=== PATIENT | female | born 1965 | race Caucasian/White ===

== ENCOUNTER 2017-05-29 10:23 | Inpatient (IN) | payer OTHER ==
--- NOTE | 2017-05-29 10:27 | ERPHSYRPT ---
- History of Present Illness Time Seen by Provider: 05/29/17 10:26 Source: patient Exam Limitations: no limitations Physician History: 52 y/o female with history of HTN and DM comes to the ER with complaints of lower abdominal pain, nausea, vomiting and dysuria for the last few days. Pt admits to vomiting 15 times and is unable to keep anything down. Pt had a CT scan abd/pelvis that shows perinephric stranding and edema of the right kidney. Pt was sent home on bactrim for a UTI. Pt also admits to having subjective fever and chills. Pt describes the pain as sharp, constant, 8/10 and not relieved by norco. Timing/Duration: day(s) Severity: severe Modifying Factors: Improves With: nothing Associated Symptoms: nausea, vomiting, abdominal pain, shortness of breath Allergies/Adverse Reactions: No Known Drug Allergies Allergy (Verified 05/29/17 10:48) Home Medications: Benazepril HCl [Lotensin] 20 mg PO DAILY 02/06/12 [History] Fluoxetine HCl [Prozac] 40 mg PO DAILY 02/06/12 [History] Hctz/Triamterene 75/50 mg [Maxzide 75/50] 1 mg PO DAILY 02/06/12 [History] Omeprazole 20 MG [Prilosec 20 mg] 20 mg PO DAILY 03/29/15 [History] Ropinirole HCl [Requip] 1 mg PO DAILY 03/29/15 [History] Simvastatin [Zocor] 40 mg PO DAILY 03/29/15 [History] Allopurinol [Allopurinol] 300 mg PO DAILY 05/29/17 [History] Metformin HCl 500 mg [Glucophage 500 MG] 500 mg PO BIDWM 05/29/17 [History ] Hx Tetanus, Diphtheria Vaccination/Date Given: Yes Hx Influenza Vaccination/Date Given: Yes (2010) Hx Pneumococcal Vaccination/Date Given: Yes - Review of Systems Constitutional: Fever, Chills, Weakness Eyes: No Symptoms Ears, Nose, & Throat: No Symptoms Respiratory: No Cough, No Dyspnea Cardiac: No Chest Pain, No Edema, No Syncope Abdominal/Gastrointestinal: Abdominal Pain, Nausea, Vomiting, Diarrhea Genitourinary Symptoms: Dysuria, No Frequency, No Hematuria Musculoskeletal: No Back Pain, No Neck Pain Skin: No Rash Neurological: No Dizziness, No Focal Weakness, No Sensory Changes Psychological: No Symptoms Endocrine: No Symptoms All Other Systems: Reviewed and Negative - Past Medical History Pertinent Past Medical History: Yes Neurological History: No Pertinent History ENT History: No Pertinent History Cardiac History: Hypertension Respiratory History: No Pertinent History, Sleep Apnea Endocrine Medical History: No Pertinent History Musculoskeletal History: No Pertinent History GI Medical History: No Pertinent History History: No Pertinent History Psycho-Social History: Depression Female Reproductive Disorders: No Pertinent History - Past Surgical History Past Surgical History: Yes Neuro Surgical History: No Pertinent History Cardiac: No Pertinent History Respiratory: No Pertinent History Gastrointestinal: No Pertinent History Genitourinary: No Pertinent History Musculoskeletal: Orthopedic Surgery, Other Female Surgical History: Section, Hysterectomy Other Surgical History: cervical ablation, knee scope left, cycst removed in lower back, maniscus repair and knee scope, left ankle - Social History Smoking Status: Never smoker Exposure to second hand smoke: No Drug Use: none - Nursing Vital Signs Nursing Vital Signs: Initial Vital Signs Temperature 99.6 F 05/29/17 10:27 Pulse Rate 110 H 05/29/17 10:27 Respiratory Rate 18 05/29/17 10:27 Blood Pressure 147/82 05/29/17 10:27 O2 Sat by Pulse Oximetry 97 05/29/17 10:27 Pain Scale Pain Intensity 6 - Physical Exam General Appearance: mild distress, alert, obese Eye Exam: PERRL/EOMI, eyes nml inspection Ears, Nose, Throat Exam: normal ENT inspection, TMs normal, pharynx normal, moist mucous membranes Neck Exam: normal inspection, non-tender, supple, full range of motion Respiratory Exam: normal breath sounds, lungs clear, No respiratory distress Cardiovascular Exam: regular rate/rhythm, normal heart sounds, normal peripheral pulses, tachycardia Gastrointestinal/Abdomen Exam: soft, normal bowel sounds, tenderness, No mass Back Exam: normal inspection, normal range of motion, No CVA tenderness, No vertebral tenderness Extremity Exam: normal inspection, normal range of motion, pelvis stable Neurologic Exam: alert, oriented x 3, cooperative, normal mood/affect, nml cerebellar function, nml station & gait, sensation nml, No motor deficits Skin Exam: normal color, warm, dry, No rash Lymphatic Exam: No adenopathy SpO2 Interpretation: normal - Course Nursing assessment & vital signs reviewed: Yes Ordered Tests: Active Orders 24 hr Category Date Time Status IV Insertion STAT Care 05/29/17 10:41 Active AMYLASE Stat Lab 05/29/17 10:50 Completed BLOOD CULTURE Stat Lab 05/29/17 10:55 Received CBC W DIFF Stat Lab 05/29/17 10:50 Completed CMP Stat Lab 05/29/17 10:50 Completed CULTURE,URINE Stat Lab 05/29/17 10:50 Received LIPASE Stat Lab 05/29/17 10:50 Completed Lactic Acid Stat Lab 05/29/17 10:50 Results Manual Differential NC Stat Lab 05/29/17 10:50 Completed UA W/ MICROSCOPIC Stat Lab 05/29/17 10:50 Completed Medication Summary Generic Name Dose Route Start Last Admin Trade Name Freq PRN Reason Stop Dose Admin Sodium Chloride 1,000 mls @ 999 mls/hr 05/29/17 10:41 05/29/17 10:45 Sodium Chloride 0.9% 1000 Ml IV 05/29/17 11:41 999 mls/hr .Q1H1M STA Administration Sodium Chloride 1,000 mls @ 999 mls/hr 05/29/17 11:19 Sodium Chloride 0.9% 1000 Ml IV 05/29/17 12:19 .Q1H1M STA Discontinued Medications Generic Name Dose Route Start Last Admin Trade Name Freq PRN Reason Stop Dose Admin Sodium Chloride Confirm 05/29/17 10:43 Sodium Chloride 0.9% 1000 Ml Administered 05/29/17 10:44 Dose 1,000 mls @ ud .ROUTE .STK-MED ONE Ceftriaxone Sodium/Dextrose 1 g in 50 mls @ 100 mls/hr 05/29/17 10:49 11:08 Rocephin 1 Gm-D5w 50 Ml Bag IV 05/29/17 11:18 100 mls/hr STAT STA Administration Ceftriaxone Sodium/Dextrose Confirm 05/29/17 11:06 Rocephin 1 Gm-D5w 50 Ml Bag Administered 05/29/17 11:07 Dose 1 g in 50 mls @ ud IV .STK-MED ONE Morphine Sulfate 4 mg 05/29/17 10:41 05/29/17 10:45 Morphine Sulfate 4 Mg Inj IV 05/29/17 10:42 4 mg STAT ONE Administration Morphine Sulfate Confirm 05/29/17 10:43 Morphine Sulfate 4 Mg Inj Administered 05/29/17 10:44 Dose 4 mg .ROUTE .STK-MED ONE Ondansetron HCl 4 mg 05/29/17 10:41 05/29/17 10:46 Zofran 4 Mg/2 Ml Vial IV 05/29/17 10:42 4 mg STAT ONE Administration Ondansetron HCl Confirm 05/29/17 10:42 Zofran 4 Mg/2 Ml Vial Administered 05/29/17 10:43 Dose 4 mg .ROUTE .STK-MED ONE Lab/Rad Data: Laboratory Result Diagrams 05/29/17 10:50 05/29/17 10:50 Laboratory Results 05/29/17 05/29/17 05/29/17 Range/Units 10:50 10:50 10:50 WBC 13.6 H (4.0-10.5) K/mm3 RBC 4.34 (4.1-5.4) M/mm3 Hgb 11.8 L (12.0-16.0) gm/dl Hct 37.7 (35-47) % MCV 86.9 (78-100) fl MCH 27.1 (26-32) pg MCHC 31.3 L (32-36) g/dl RDW 16.7 H (11.5-14.0) % Plt Count 124 L (150-450) K/mm3 MPV 11.7 H (6-9.5) fl Sodium 135 L (136-145) mEq/L Potassium 3.5 (3.5-5.1) mEq/L Chloride 98 (98-107) mEq/L Carbon Dioxide 24.3 (21-32) mEq/L Anion Gap 15.7 H (5-15) MEQ/L BUN 36 H (9-20) mg/dL Creatinine 2.11 H (0.55-1.30) mg/dl Estimated GFR 26 ML/MIN Glucose 176 H (70-110) MG/DL Lactic Acid 3.2 H (0.4-2.0) Calcium 8.6 (8.5-10.1) mg/dL Total Bilirubin 0.90 (0.2-1.0) mg/dL AST 32 (15-37) U/L ALT 37 (12-78) U/L Alkaline Phosphatase 96 (46-116) U/L Serum Total Protein 7.0 (6.4-8.2) gm/dL Albumin 2.9 L (3.4-5.0) g/dL Amylase 19 L (25-115) U/L Lipase 95 (73-393) U/L Ur Collection Type Urine Color (YELLOW) Urine Appearance (CLEAR) Urine pH (5-6) Ur Specific Hastings (1.005-1.025) Urine Protein (Negative) Urine Ketones (NEGATIVE) Urine Blood (0-5) Jules/ul Urine Nitrite (NEGATIVE) Urine Bilirubin (NEGATIVE) Urine Urobilinogen (0-1) mg/dL Ur Leukocyte Esterase (NEGATIVE) Urine Microscopic RBC (0-2) /HPF Urine Microscopic WBC (0-5) /HPF Ur Epithelial Cells (FEW) /HPF Urine Bacteria (NEGATIVE) /HPF Urine Culture Reflexed (NO) Urine Glucose (NEGATIVE) mg/dL Specimen Received 05/29/17 Range/Units 10:50 WBC (4.0-10.5) K/mm3 RBC (4.1-5.4) M/mm3 Hgb (12.0-16.0) gm/dl Hct (35-47) % MCV (78-100) fl MCH (26-32) pg MCHC (32-36) g/dl RDW (11.5-14.0) % Plt Count (150-450) K/mm3 MPV (6-9.5) fl Sodium (136-145) mEq/L Potassium (3.5-5.1) mEq/L Chloride (98-107) mEq/L Carbon Dioxide (21-32) mEq/L Anion Gap (5-15) MEQ/L BUN (9-20) mg/dL Creatinine (0.55-1.30) mg/dl Estimated GFR ML/MIN Glucose (70-110) MG/DL Lactic Acid (0.4-2.0) Calcium (8.5-10.1) mg/dL Total Bilirubin (0.2-1.0) mg/dL AST (15-37) U/L ALT (12-78) U/L Alkaline Phosphatase (46-116) U/L Serum Total Protein (6.4-8.2) gm/dL Albumin (3.4-5.0) g/dL Amylase (25-115) U/L Lipase (73-393) U/L Ur Collection Type CLEAN CATCH Urine Color YELLOW (YELLOW) Urine Appearance CLOUDY (CLEAR) Urine pH 5.0 (5-6) Ur Specific Hastings 1.015 (1.005-1.025) Urine Protein 500 (Negative) Urine Ketones TRACE (NEGATIVE) Urine Blood 250 (0-5) Jules/ul Urine Nitrite POSITIVE (NEGATIVE) Urine Bilirubin NEGATIVE (NEGATIVE) Urine Urobilinogen NORMAL (0-1) mg/dL Ur Leukocyte Esterase 2+ (NEGATIVE) Urine Microscopic RBC 5-10 (0-2) /HPF Urine Microscopic WBC 25-50 (0-5) /HPF Ur Epithelial Cells MODERATE (FEW) /HPF Urine Bacteria MANY (NEGATIVE) /HPF Urine Culture Reflexed YES (NO) Urine Glucose NEGATIVE (NEGATIVE) mg/dL Specimen Received 05/29/17 1030 - Progress Progress: improved Progress Note: 05/29/17 11:[address] scan abd/pelvis shows features of pyelonephritis. The UA looks worse and the patient will receive rocephin. White count is 13,000. The lactic acid is 2 and the creatinine is 2.1. Pt feels better after receiving morphine, zofran and NS fluids. Pt has been admitted for pyelonephritis to Dr Jefferson. - Departure Time of Disposition: 11:36 Departure Disposition: In-patient Admission Clinical Impression: Pyelonephritis Condition: Fair Critical Care Time: Yes Critical Care Time(excluding separately billable procedures): 75-104 minutes Referrals: ABEL JEFFERSON [Primary Care Provider] -
[2017-05-29] MEDS ORDERED: Sodium Chloride 0.9% 1000 ML 1,000 ML IV STA ×2 (10:41→11:19)
[2017-05-29] MEDS ORDERED: Zofran 4 MG/2 ML VIAL IV ONE (10:41)
[2017-05-29] MEDS ORDERED: MORPHINE SULFATE 4 MG INJ IV ONE (10:41)
[2017-05-29] MEDS ORDERED: Zofran 4 MG/2 ML VIAL ONE (10:42)
[2017-05-29] MEDS ORDERED: MORPHINE SULFATE 4 MG INJ ONE (10:43)
[2017-05-29] MEDS ORDERED: Sodium Chloride 0.9% 1000 ML 1,000 ML ONE (10:43)
[2017-05-29] MEDS ORDERED: ROCEPHIN 1 Gm-D5w 50 ml Bag** 1 G/50 ML IVPB IV STA (10:49)
[2017-05-29 11:03] LABS: Mean Cell Volume 86.9 fl (78-100); Mean Platelet Volume 11.7 fl (6-9.5); Platelet Count 124 K/mm3 (150-450); Red Blood Count 4.34 M/mm3 (4.1-5.4); Red Cell Distribution Width 16.7 % (11.5-14.0); White Blood Count 13.6 K/mm3 (4.0-10.5)
[2017-05-29] MEDS ORDERED: ROCEPHIN 1 Gm-D5w 50 ml Bag** 1 G/50 ML IVPB IV ONE (11:06)
[2017-05-29 11:09] LABS: Mean Corpuscular Hemoglobin 27.1 pg (26-32)
[2017-05-29 11:10] LABS: Collection Type CLEAN CATCH; Leukocyte Esterase 2+ (NEGATIVE)
[2017-05-29 11:11] LABS: ADD URINE CULTURE? YES (NO); Bacteria MANY /HPF (NEGATIVE); Bilirubin NEGATIVE (NEGATIVE); Blood 250 Ery/ul (0-5); COMPLETE URINE MICROSCOPIC? YES; Epithelial Cells MODERATE /HPF (FEW); Glucose NEGATIVE (NEGATIVE); Lactic Acid 3.2 (0.4-2.0); WBC 25-50 /HPF (0-5)
[2017-05-29 11:25] LABS: ALBUMIN 2.9 g/dL (3.4-5.0); ANION GAP 15.7 MEQ/L (5-15); BILIRUBIN,TOTAL 0.9 mg/dL (0.2-1.0); Carbon Dioxide 24.3 mEq/L (21-32); Potassium 3.5 mEq/L (3.5-5.1)
[2017-05-29 11:40] LABS: BAND 5 % (0.0-2.0); Eosinophil 3 % (0.00-3.0); Platelet Estimate NORMAL (NORMAL); Total Cells Counted 100
[2017-05-29] MEDS: Sodium Chloride 0.9% 1000 ML 1,000 ML IV SCH ×2 (12:18→20:04)
[2017-05-29] MEDS ORDERED: NovoLOG Insulin SQ PRN (13:34)
[2017-05-29] MEDS: Phenergan 25 MG INJ IV PRN (14:00)
[2017-05-29 14:09] LABS: Lactic Acid 2.6 (0.4-2.0)
[2017-05-29] MEDS ORDERED: NORCO 7.5/325 MG TAB PO PRN (14:41)
[2017-05-29] MEDS ORDERED: FEVERALL 650 MG PR PRN (16:36)
--- NOTE | 2017-05-29 16:51 | HP ---
CHIEF COMPLAINT: Lower abdominal pain, nausea and vomiting. HISTORY OF PRESENT ILLNESS: The patient is a 52 y/o WF who presented to the outpatient office and saw Shaunna De Leon. She apparently had a urine done and they apparently saw blood in her urine. She was given Bactrim, but she was unable to keep it down. The patient continued to get worse. She presented herself to the Emergency Room and was subsequently admitted to the hospital for acute pyelonephritis. PAST MEDICAL HISTORY: Significant for hypertension, hyperlipidemia, type 2 diabetes mellitus, and morbid obesity. PAST SURGICAL HISTORY: Includes , hysterectomy, knee scope, apparently and meniscus repair in her knee. PHYSICAL EXAMINATION: Reveals a morbidly obese WF currently in moderate distress due to her back pain. HEENT: Normocephalic and atraumatic. Pupils equal, round, and reactive to light. Extraocular movements intact. Oropharynx is pink and moist. NECK: Supple without lymphadenopathy, thyromegaly, or JVD. CHEST: Clear to auscultation with good air movement bilaterally. HEART: Regular rate and rhythm without murmurs, rubs, or gallops. ABDOMEN: Tender particularly in the lower abdomen. No palpable masses were felt. EXTREMITIES: Without cyanosis, clubbing, or edema. NEURO: The patient is alert and oriented X 3. No focal deficits are noted. VITAL SIGNS ON ADMISSION: Showed a temperature of 99.6, pulse 110, respiratory rate 18, BP 147/82. LABORATORY STUDIES: Revealed lactic acid of 2.6. Metabolic panel showed a glucose of 176, BUN 36, creatinine 2.11. Electrolytes were normal. Liver enzymes are normal. Amylase and lipase are normal. WBC was 13,600 with 5 bands and 73 polys. Her Hgb was 11.8. Platelet count was somewhat low at 124,000. The patient's urine showed specific gravity of 1.015 with positive nitrite, 25-50 WBC/high powered field, and 5-10 RBC. The patient apparently had a CT scan that showed swelling in the kidney. She apparently also had a couple of cysts in the liver which were found on the CT scan from 2 days prior to this. The patient has outpatient evaluation set up for CT scan with contrast later, but this will likely be held presently due to her elevated creatinine. The patient has been placed on IV fluids. She is getting antiemetics, pain medications, and she has been placed on Rocephin empirically in the Emergency Room. Apparently, we did not get a culture on her urine on Thursday. We will ask them to run a culture on her urine today as well as get blood cultures. We are consulting the pharmacy for possible change in her antibiotic regimen empirically to gentamicin and Unasyn.
[2017-05-29] MEDS: Prozac 20 MG PO SCH (17:05)
[2017-05-29] MEDS: ZYLOPRIM 300 MG PO SCH (17:05)
[2017-05-29] MEDS: Glucophage 500 MG PO SCH (17:05)
[2017-05-29] MEDS: ENOXAPARIN SODIUM SQ SCH (17:05)
[2017-05-29] MEDS: PROTONIX 40 MG IV IV SCH (17:05)
[2017-05-29] MEDS: TYLENOL 325 MG PO PRN (17:05)
[2017-05-29] MEDS: Nystatin SUSPENSION 60 ML PO SCH (17:06)
[2017-05-29] MEDS ORDERED: NON-FORMULARY ITEM (Ropinirole Hcl [Requip] 1 MG) PO SCH (22:00)
[2017-05-29] MEDS ORDERED: NON-FORMULARY ITEM (Simvastatin [Zocor] 40 MG) PO SCH (22:00)
[2017-05-29] MEDS ORDERED: NON-FORMULARY ITEM (Benazepril Hcl [Lotensin] 20 MG) PO SCH (22:00)
[2017-05-30] MEDS: Requip 0.5 MG PO SCH ×2 (00:39→21:11)
[2017-05-30] MEDS: ZOCOR 20MG PO SCH ×2 (00:39→21:11)
[2017-05-30] MEDS: TYLENOL 325 MG PO PRN ×3 (00:39→19:46)
[2017-05-30] MEDS: Nystatin SUSPENSION 60 ML PO SCH ×6 (00:40→21:10)
[2017-05-30] MEDS: Lotensin 10 MG PO SCH ×2 (00:44→21:10)
[2017-05-30] MEDS: Sodium Chloride 0.9% 1000 ML 1,000 ML IV SCH ×4 (02:32→23:58)
[2017-05-30] MEDS: Zofran 4 MG/2 ML VIAL IV PRN ×2 (05:04→14:45)
[2017-05-30 06:02] LABS: Mean Cell Volume 88.2 fl (78-100); Mean Corpuscular Hemoglobin 27.6 pg (26-32); Mean Platelet Volume 11.8 fl (6-9.5); Platelet Count 97 K/mm3 (150-450); Red Blood Count 3.73 M/mm3 (4.1-5.4); Red Cell Distribution Width 16.8 % (11.5-14.0); White Blood Count 8.4 K/mm3 (4.0-10.5)
[2017-05-30 06:27] LABS: ALBUMIN 2.3 g/dL (3.4-5.0); ANION GAP 11.3 MEQ/L (5-15); BILIRUBIN,TOTAL 0.7 mg/dL (0.2-1.0); Carbon Dioxide 27.5 mEq/L (21-32); Potassium 4.3 mEq/L (3.5-5.1); Total Protein 6.3 gm/dL (6.4-8.2)
[2017-05-30 07:27] LABS: BAND 14 % (0.0-2.0); Eosinophil 1 % (0.00-3.0); Platelet Estimate DECREASED (NORMAL); Total Cells Counted 100; Toxic Granulation 1+
[2017-05-30 07:28] LABS: Dohle Bodies 1+
[2017-05-30] MEDS: Prozac 20 MG PO SCH (07:53)
[2017-05-30] MEDS: ZYLOPRIM 300 MG PO SCH (07:53)
[2017-05-30] MEDS: Glucophage 500 MG PO SCH ×2 (07:54→17:26)
[2017-05-30] MEDS: PROTONIX 40 MG IV IV SCH (07:54)
[2017-05-30] MEDS: ROCEPHIN 1 Gm-D5w 50 ml Bag** 1 G/50 ML IVPB IV SCH (07:55)
[2017-05-30] MEDS: Maxzide-25MG Tablet PO SCH (08:47)
[2017-05-30] MEDS ORDERED: NON-FORMULARY ITEM (Fluoxetine Hcl [Prozac] 40 MG) PO SCH (10:00)
[2017-05-30] MEDS ORDERED: TRIAMTERENE PO SCH (10:00)
[2017-05-30] MEDS ORDERED: HCTZ PO SCH (10:00)
[2017-05-30] MEDS ORDERED: Protonix 40MG Tablet PO SCH (10:00)
[2017-05-30] MEDS ORDERED: ZOLOFT 50 MG TABLET PO SCH (10:00)
[2017-05-30] MEDS: Phenergan 25 MG INJ IV PRN ×2 (10:28→17:26)
[2017-05-30] MEDS ORDERED: Sodium Chloride 0.9% 1000 ML 1,000 ML IV STA ×2 (14:27→18:22)
--- NOTE | 2017-05-30 14:35 | PCM.NOTE ---
Date and Time: 05/30/17 142 Subjective Assessment: She is feeling a little better; ate jello for lunch but feels it's too sweet, is having some vomiting of small amount of jello-colored vomitus. Did have fever to 101.3. Has a positive blood culture for gram negative rods. - Review of Systems Constitutional: Fever, Weakness Abdominal/Gastrointestinal: Vomiting Objective Exam General Appearance: mild distress, alert Neurologic Exam: oriented x 3, cooperative Skin Exam: normal color, warm, dry, No rash Respiratory Exam: normal breath sounds, lungs clear, No crackles/rales, No rhonchi, No wheezing Cardiovascular Exam: regular rate/rhythm, normal heart sounds, No murmur Gastrointestinal/Abdomen Exam: soft, normal bowel sounds, No tenderness Extremity Exam: No pedal edema, No swelling Back Exam: No CVA tenderness OBJECTIVE DATA Vital Signs: Vital Signs - 24 hr Temp Pulse Resp BP Pulse Ox 05/30/17 11:21 101.2 F 99 H 20 110/57 93 L 05/30/17 07:14 99.1 F 92 H 20 142/54 93 L 05/30/17 04:00 98.8 F 86 16 97/61 97 05/30/17 00:00 98.2 F 90 20 115/57 98 05/29/17 20:05 90 18 97 05/29/17 20:00 98.3 F 91 H 18 96/54 97 05/29/17 16:00 101.3 F 111 H 18 124/59 90 L Oxygen-Last 24 hours O2 Percentage 2 Liters = 28% O2 Percentage 2 Liters = 28% O2 Percentage 2 Liters = 28% O2 Percentage 2 Liters = 28% Pain Assessment - Last Documented Pain Intensity 10 Pain Scale Used 0-10 Pain Scale Intake and Output: Intake & Output 05/28/17 05/29/17 05/30/17 05/31/17 11:59 11:59 11:59 11:59 Intake Total 3606 360 Output Total 1450 Balance 2156 360 Weight 169.303 kg Lab Results: Accuchecks Date 05/29/17 Time 16:30 Accucheck Value: 126 Accucheck Value: 120 Lab Results-Last 24 Hours 05/30/17 05/30/17 Range/Units 04:00 05:35 WBC 8.4 (4.0-10.5) K/mm3 RBC 3.73 L (4.1-5.4) M/mm3 Hgb 10.3 L (12.0-16.0) gm/dl Hct 32.9 L (35-47) % MCV 88.2 (78-100) fl MCH 27.6 (26-32) pg MCHC 31.3 L (32-36) g/dl RDW 16.8 H (11.5-14.0) % Plt Count 97 L (150-450) K/mm3 MPV 11.8 H (6-9.5) fl Segmented Neutrophils 81 H (36.0-66.0) % Band Neutrophils 14 H (0.0-2.0) % Lymphocytes (Manual) 3 L (24-44) % Monocytes (Manual) 1 (0.0-12.0) % Eosinophils (Manual) 1 (0.00-3.0) % Differential Comment ABNORMAL Toxic Granulation 1+ Dohle Bodies 1+ Platelet Estimate DECREASED (NORMAL) Sodium 137 (136-145) mEq/L Potassium 4.3 (3.5-5.1) mEq/L Chloride 102 (98-107) mEq/L Carbon Dioxide 27.5 (21-32) mEq/L Anion Gap 11.3 (5-15) MEQ/L BUN 41 H (9-20) mg/dL Creatinine 2.19 H (0.55-1.30) mg/dl Estimated GFR 25 ML/MIN Glucose 159 H (70-110) MG/DL Calcium 7.9 L (8.5-10.1) mg/dL Total Bilirubin 0.70 (0.2-1.0) mg/dL AST 31 (15-37) U/L ALT 29 (12-78) U/L Alkaline Phosphatase 86 (46-116) U/L Serum Total Protein 6.3 L (6.4-8.2) gm/dL Albumin 2.3 L (3.4-5.0) g/dL Assessment/Plan (1) Pyelonephritis Current Visit: Yes Status: Acute Assessment & Plan: On IV rocephin. UCx pending. Bands from 5 yesterday to 14 today which I think just reflects the severity of her inital illness. I would expect her to run less of a fever tonight and start to feel better tomorrow. If not, would change antibiotic. Code(s): N12 - TUBULO-INTERSTITIAL NEPHRITIS, NOT SPCF ACUTE OR CHRONIC (2) Renal insufficiency Current Visit: Yes Status: Acute Assessment & Plan: This is new since Mar 2017 (when Cr was 0.99). Will give NS bolus x 2 today and recheck in a.m. (3) Diabetes mellitus Current Visit: Yes Status: Acute Qualifiers: Diabetes mellitus type: type 2 Diabetes mellitus complication status: without complication Diabetes mellitus intermodal truck driver insulin use: without intermodal truck driver use Qualified Code(s): E11.9 - Type 2 diabetes mellitus without complications Assessment & Plan: BS 120, 126 here. Code(s): E11.9 - TYPE 2 DIABETES MELLITUS WITHOUT COMPLICATIONS (4) Bacteremia Current Visit: Yes Status: Acute Assessment & Plan: Sensitivity is pending. Gram neg юлия. Code(s): R78.81 - BACTEREMIA (5) Morbid obesity Current Visit: Yes Status: Chronic Code(s): E66.01 - MORBID (SEVERE) OBESITY DUE TO EXCESS CALORIES
[2017-05-30] MEDS: MORPHINE SULFATE 4 MG INJ IV PRN (17:25)
[2017-05-30] MEDS: ENOXAPARIN SODIUM SQ SCH (17:25)
[2017-05-31] MEDS: TYLENOL 325 MG PO PRN (02:27)
[2017-05-31 05:42] LABS: Mean Cell Volume 87.8 fl (78-100); Mean Corpuscular Hemoglobin 27.4 pg (26-32); Mean Platelet Volume 11.9 fl (6-9.5); Platelet Count 104 K/mm3 (150-450); Red Blood Count 3.61 M/mm3 (4.1-5.4); Red Cell Distribution Width 16.7 % (11.5-14.0); White Blood Count 8.1 K/mm3 (4.0-10.5)
[2017-05-31 05:46] LABS: ANION GAP 9.9 MEQ/L (5-15); Carbon Dioxide 26.8 mEq/L (21-32); Potassium 3.7 mEq/L (3.5-5.1)
[2017-05-31] MEDS: Sodium Chloride 0.9% 1000 ML 1,000 ML IV SCH ×3 (06:24→22:49)
[2017-05-31] MEDS: Glucophage 500 MG PO SCH ×2 (08:00→16:23)
[2017-05-31] MEDS: MORPHINE SULFATE 4 MG INJ IV PRN (08:45)
[2017-05-31] MEDS: Zofran 4 MG/2 ML VIAL IV PRN (08:45)
[2017-05-31] MEDS: Prozac 20 MG PO SCH (09:44)
[2017-05-31] MEDS: PROTONIX 40 MG IV IV SCH (09:44)
[2017-05-31] MEDS: Maxzide-25MG Tablet PO SCH (09:44)
[2017-05-31] MEDS: ZYLOPRIM 300 MG PO SCH (09:45)
[2017-05-31] MEDS: Nystatin SUSPENSION 60 ML PO SCH ×4 (09:51→21:26)
[2017-05-31] MEDS: ROCEPHIN 1 Gm-D5w 50 ml Bag** 1 G/50 ML IVPB IV SCH (10:23)
[2017-05-31] MEDS ORDERED: Sodium Chloride 0.9% 1000 ML 2,000 ML IV STA (12:40)
[2017-05-31] MEDS ORDERED: ROCEPHIN 1 Gm-D5w 50 ml Bag** 1 G/50 ML IVPB IV ONE (13:15)
[2017-05-31] MEDS ORDERED: Colace 100 MG PO PRN (13:35)
[2017-05-31] MEDS ORDERED: Cyclobenzaprine 10 MG PO PRN (13:35)
--- NOTE | 2017-05-31 13:36 | PCM.NOTE ---
Date and Time: 05/31/17 1332 Subjective Assessment: She is feeling better. Does c/o HERRERA, thinks her neck is "out of whack." sees chiropracter typically. Nica does not sit well on her stomach. On 4L NC ( not on O2 at home). - Review of Systems Constitutional: Fever (off and on, tmax 101.2) Objective Exam General Appearance: no apparent distress, alert, obese Neurologic Exam: oriented x 3, cooperative Skin Exam: normal color, warm, dry, No rash Respiratory Exam: normal breath sounds, lungs clear, No crackles/rales, No rhonchi, No wheezing Cardiovascular Exam: regular rate/rhythm, normal heart sounds, No murmur Gastrointestinal/Abdomen Exam: soft, No tenderness, No distention Extremity Exam: No pedal edema, No swelling Back Exam: normal inspection, No rash OBJECTIVE DATA Vital Signs: Vital Signs - 24 hr Temp Pulse Resp BP Pulse Ox 05/31/17 12:00 98.2 F 98 H 22 125/59 93 L 05/31/17 07:52 97.6 F 88 21 137/90 99 05/31/17 04:10 98.1 F 91 H 18 114/67 97 05/30/17 23:40 98.4 F 112 H 22 107/50 96 05/30/17 20:47 108 H 22 94 L 05/30/17 19:34 100.2 F 110 H 24 130/75 89 L 05/30/17 16:00 100.8 F 96 H 20 132/65 93 L Oxygen-Last 24 hours O2 Percentage 4 Liters = 36% O2 Percentage 4 Liters = 36% O2 Percentage 4 Liters = 36% O2 Percentage 2 Liters = 28% Pain Assessment - Last Documented Pain Intensity 0 Pain Scale Used 0-10 Pain Scale Intake and Output: Intake & Output 05/29/17 05/30/17 05/31/17 06/01/17 11:59 11:59 11:59 11:59 Intake Total 3606 6834 60 Output Total 1850 1200 Balance 1756 5634 60 Weight 169.303 kg Lab Results: Accuchecks Date 05/31/17 Date 05/31/17 Date 05/30/17 Time 16:30 Accucheck Value: 108 Accucheck Value: 111 Accucheck Value: 122 Accucheck Value: 111 Lab Results-Last 24 Hours 12/24/17 12/24/17 Range/Units 05:00 05:00 WBC 8.1 (4.0-10.5) K/mm3 RBC 3.61 L (4.1-5.4) M/mm3 Hgb 9.9 L (12.0-16.0) gm/dl Hct 31.7 L (35-47) % MCV 87.8 (78-100) fl MCH 27.4 (26-32) pg MCHC 31.2 L (32-36) g/dl RDW 16.7 H (11.5-14.0) % Plt Count 104 L (150-450) K/mm3 MPV 11.9 H (6-9.5) fl Sodium 138 (136-145) mEq/L Potassium 3.7 (3.5-5.1) mEq/L Chloride 105 (98-107) mEq/L Carbon Dioxide 26.8 (21-32) mEq/L Anion Gap 9.9 (5-15) MEQ/L BUN 38 H (9-20) mg/dL Creatinine 1.91 H (0.55-1.30) mg/dl Estimated GFR 29 ML/MIN Glucose 128 H (70-110) MG/DL Calcium 7.6 L (8.5-10.1) mg/dL Multi-Disciplinary Progress Notes: Multi-Disciplinary Progress Notes 05/31/17 00:16 Respiratory Note by Amador Holland I WENT TO CHECK ON PT AFTER REMOVING HER HM CPAP WHERE SHE HAD LOW SATS AND HAD PLACED HER ON 4LPM O2. AT THIS TIME SHE WAS RESTING, LAYING ON HER SIDE, AND HER SATS WERE 92% ON 4LPM O2 W/ A HR OF 90. I LEFT PT ON 4LPM O2. Initialized on 05/31/17 00:16 - END OF NOTE Assessment/Plan (1) Pyelonephritis Current Visit: Yes Status: Acute Assessment & Plan: UCx with E. coli susceptible to rocephin. Increased rocephin to 2g IV daily. Code(s): N12 - TUBULO-INTERSTITIAL NEPHRITIS, NOT SPCF ACUTE OR CHRONIC (2) Renal insufficiency Current Visit: Yes Status: Acute Assessment & Plan: Persistent; improved. 2L of fluid now and recheck this evening, if not appreciably better will consult nephrology. (3) Diabetes mellitus Current Visit: Yes Status: Acute Qualifiers: Diabetes mellitus type: type 2 Diabetes mellitus complication status: without complication Diabetes mellitus alf insulin use: without petroleum terminal plant operator use Qualified Code(s): E11.9 - Type 2 diabetes mellitus without complications Code(s): E11.9 - TYPE 2 DIABETES MELLITUS WITHOUT COMPLICATIONS (4) Bacteremia Current Visit: Yes Status: Acute Assessment & Plan: also E. coli, [facility] Code(s): R78.81 - BACTEREMIA (5) Morbid obesity Current Visit: Yes Status: Chronic Code(s): E66.01 - MORBID (SEVERE) OBESITY DUE TO EXCESS CALORIES
[2017-05-31] MEDS: ENOXAPARIN SODIUM SQ SCH (17:22)
[2017-05-31 19:22] LABS: ANION GAP 9.5 MEQ/L (5-15); Carbon Dioxide 28.1 mEq/L (21-32)
[2017-05-31] MEDS: Requip 0.5 MG PO SCH (21:23)
[2017-05-31] MEDS: ZOCOR 20MG PO SCH (21:23)
[2017-05-31] MEDS: Lotensin 10 MG PO SCH (21:23)
[2017-06-01] MEDS: Sodium Chloride 0.9% 1000 ML 1,000 ML IV SCH (05:37)
[2017-06-01 08:05] VITALS: BP 106/68; PULSE 71; O2SAT 95
[2017-06-01] MEDS: Glucophage 500 MG PO SCH (08:09)
[2017-06-01 09:18] LABS: Mean Cell Volume 88.5 fl (78-100); Mean Platelet Volume 11.3 fl (6-9.5); Platelet Count 126 K/mm3 (150-450); Red Blood Count 3.49 M/mm3 (4.1-5.4); White Blood Count 8.2 K/mm3 (4.0-10.5)
[2017-06-01 09:26] LABS: Mean Corpuscular Hemoglobin 27.7 pg (26-32)
[2017-06-01 09:41] LABS: ANION GAP 10.3 MEQ/L (5-15); Carbon Dioxide 28.3 mEq/L (21-32); Potassium 3.8 mEq/L (3.5-5.1)
[2017-06-01] MEDS: ZYLOPRIM 300 MG PO SCH (09:41)
[2017-06-01] MEDS: Nystatin SUSPENSION 60 ML PO SCH (09:42)
[2017-06-01] MEDS: PROTONIX 40 MG IV IV SCH (09:42)
[2017-06-01] MEDS: Prozac 20 MG PO SCH (09:42)
[2017-06-01] MEDS: Maxzide-25MG Tablet PO SCH (09:43)
[2017-06-01] MEDS ORDERED: ROCEPHIN 2 Gm-D5w 50ML BAG** 2 G/50 ML IVPB IV SCH (10:00)
--- NOTE | 2017-06-01 10:28 | PCM.DS ---
Discharge Summary Date of Admission: 05/29/17 11:59 Date of Discharge: 06/01/17 Admitting Physician: ABEL GUTIÉRREZ Primary Care Provider: ABEL GUTIÉRREZ Allergies Allergies No Known Drug Allergies Allergy (Verified 05/29/17 10:48) Hospital Summary - Hospital Course Hospital Course: Ms. Estevez was initially seen by Shaunna De Leon 05/27/17 was started on bactrim for UTI and had CT due to flank pain and showed pyelonephritis as well as some liver areas possible hemangiomas and repeat CT was arranged with contrast. She continued to worsen at home and was admitted with pyelonephritis and sepsis. The UTI was found due to E. coli resistent to bactrim. She also had acute kidney injury likely due to the sepsis and the bactrim. this improved with IV hydration. Her vomiting finally improved and the pain is improving as well and she feels she is doing better and would like to go home. She is now afebrile and renal function is steadily improving on the iv fluids. All her home meds were continued during her stay including her aly inhibitor, metformin and diuretics. We discused she will hold her enalapril for 1 week after discharge to allow kidney to recover from the NGUYEN. She is to push fluids at home and take the antibiotic. She was given Rocephin just prior to discharge so she may start abx tomorrow. She is to have BMP redrawn in 1 week and if renal function improved she can reschedule her CT scan for the liver lesions. - Vitals & Intake/Output Vital Signs: Vital Signs Temperature 98.1 F 06/01/17 08:00 Pulse Rate 71 06/01/17 08:00 Respiratory Rate 18 06/01/17 08:00 Blood Pressure 106/68 06/01/17 08:00 O2 Sat by Pulse Oximetry 95 06/01/17 08:00 Oxygen-Last Documented O2 Percentage 4 Liters = 36% Intake & Output: Intake & Output 05/29/17 05/30/17 05/31/17 06/01/17 11:59 11:59 11:59 11:59 Intake Total 3606 6834 3635 Output Total 1850 1200 1100 Balance 1756 5634 2535 Weight 169.303 kg - Lab Result Diagrams: 06/01/17 09:15 06/01/17 09:15 Lab Results-Last 24 Hrs: Accuchecks Date 06/01/17 Date 05/31/17 Date 05/31/17 Date 05/31/17 Time 07:30 Accucheck Value: 91 Accucheck Value: 94 Accucheck Value: 145 Accucheck Value: 108 Lab Results-Last 24 Hours 05/31/17 06/01/17 06/01/17 Range/Units 18:35 09:15 09:15 WBC 8.2 (4.0-10.5) K/mm3 RBC 3.49 L (4.1-5.4) M/mm3 Hgb 9.7 L (12.0-16.0) gm/dl Hct 30.9 L (35-47) % MCV 88.5 (78-100) fl MCH 27.7 (26-32) pg MCHC 31.4 L (32-36) g/dl RDW 17.0 H (11.5-14.0) % Plt Count 126 L (150-450) K/mm3 MPV 11.3 H (6-9.5) fl Sodium 140 141 (136-145) mEq/L Potassium 4.0 3.8 (3.5-5.1) mEq/L Chloride 106 106 (98-107) mEq/L Carbon Dioxide 28.1 28.3 (21-32) mEq/L Anion Gap 9.5 10.3 (5-15) MEQ/L BUN 35 H 31 H (9-20) mg/dL Creatinine 1.85 H 1.66 H (0.55-1.30) mg/dl Estimated GFR 30 34 ML/MIN Glucose 109 134 H (70-110) MG/DL Calcium 7.7 L 7.7 L (8.5-10.1) mg/dL Micro Results-Entire Visit: Accuchecks Date 06/01/17 Date 05/31/17 Date 05/31/17 Date 05/31/17 Time 07:30 Accucheck Value: 91 Accucheck Value: 94 Accucheck Value: 145 Accucheck Value: 108 - Procedures and Test Procedures and Tests throughout Hospitalization: Therapy Orders & Screens 05/29/17 20:00 Oxygen NASAL CANNULA 2 lpm Comment: Diagnosis: Pylonephritis 05/31/17 17:37 Incentive Spirometry Assessmen UD Comment: Diagnosis: Pylonephritis Discharge Exam General Appearance: no apparent distress, alert, obese Neurologic Exam: alert, oriented x 3, cooperative, normal mood/affect, nml cerebellar function, sensation nml, No motor deficits Skin Exam: normal color, warm, dry Eye Exam: PERRL, EOMI, eyes nml inspection Ears, Nose, Throat Exam: normal ENT inspection, pharynx normal, moist mucous membranes Neck Exam: normal inspection, non-tender, supple, full range of motion Respiratory Exam: normal breath sounds, lungs clear, No respiratory distress Cardiovascular Exam: regular rate/rhythm, normal heart sounds Gastrointestinal/Abdomen Exam: soft, No tenderness, No mass Extremity Exam: normal inspection, normal range of motion Back Exam: normal inspection, normal range of motion, No CVA tenderness, No vertebral tenderness Pelvic Exam: deferred Rectal Exam: deferred Final Diagnosis/Problem List - Final Discharge Diagnosis/Problem (1) Pyelonephritis Status: Acute (2) E coli bacteremia Status: Acute (3) Sepsis Status: Acute (4) Acute kidney injury Status: Acute (5) Anemia Status: Acute (6) Diabetes mellitus Status: Chronic (7) Morbid obesity Status: Chronic - Discharge Disposition: Home, Self-Care Condition: Fair Prescriptions: New Cephalexin Mh 500 mg [Keflex 500 mg] 500 mg PO TID #21 capsule Continue Fluoxetine HCl [Prozac] 40 mg PO DAILY Hctz/Triamterene 75/50 mg [Maxzide 75/50] 1 mg PO DAILY Simvastatin [Zocor] 40 mg PO HS Omeprazole 20 MG [Prilosec 20 mg] 20 mg PO HS Ropinirole HCl [Requip] 1 mg PO HS Allopurinol 300 mg PO DAILY Metformin HCl 500 mg [Glucophage 500 MG] 500 mg PO BIDWM Hydrocodone Bit/Acetaminophen [[place] 7.5-325 Tablet] 1 each PO Q6H PRN PRN PRN Reason: Pain Nystatin 60 ml [Nystatin SUSPENSION 60 ML] 5 ml PO QID Discontinued Benazepril HCl [Lotensin] 20 mg PO HS Instructions: Urinary Tract Infection (UTI) Additional Instructions: restart the benazapril (Lotensin) in 1 week. Have lab drawn for BMP in [address] scheduled for 06/04/17 after the kidney function has returned to normal Follow up with: ABEL GUTIÉRREZ [Primary Care Provider] - 1 Week Forms: Discharge Instructions, Patient Portal Information
== END 2017-06-01 11:00 | disposition home or self-care (01) | DRG 689 ==
LOC: ED 10:23 → MED SURG 11:59
PROVIDERS: ADMIT Family Medicine; ATTEND Family Medicine
DX: N12 Tubulo-interstitial nephritis, not specified as acute or chronic (principal); A41.9 Sepsis, unspecified organism; R78.81 Bacteremia; A49.8 Other bacterial infections of unspecified site; N17.9 Acute kidney failure, unspecified; D64.9 Anemia, unspecified; E11.9 Type 2 diabetes mellitus without complications; Z79.4 Long term (current) use of insulin; E66.01 Morbid (severe) obesity due to excess calories; Z79.899 Other long term (current) drug therapy; I10 Essential (primary) hypertension; E78.5 Hyperlipidemia, unspecified; N28.9 Disorder of kidney and ureter, unspecified
CPT/HCPCS: 36000; 36415; 80048; 80053; 81000; 82150; 82962; 83605; 83690; 85025; 85027; 87040; 87077; 87086; 87186; 94760; 96360; 96365; 96374; 96375; 99285; J0696; J1650; J2270; J2405; J2550; A9270-GY

== ENCOUNTER 2022-08-26 11:01 | Emergency (ER) | payer OTHER, SELFPAY ==
[2022-08-26] MEDS ORDERED: Zofran 4 MG/2 ML VIAL IV ONE (11:29)
[2022-08-26] MEDS ORDERED: MORPHINE SULFATE 4 MG INJ IV ONE (11:29)
[2022-08-26] MEDS ORDERED: Zofran 4 MG/2 ML VIAL ONE (11:46)
--- NOTE | 2022-08-26 11:46 | ERPHSYRPT ---
- History of Present Illness Time Seen by Provider: 08/26/22 11:41 Source: patient Exam Limitations: no limitations Physician History: Patient is a 57-year-old female presents to our ED with right lower quadrant pain. Patient states the pain has been progressive over 2 weeks. Pain is moderate to severe at this time. Patient followed up with her primary care doctor's office. Dr. Gutiérrez ordered labs urinalysis. He attempted to obtain a CT abdomen pelvis but was unable to do so efficiently and so patient was brought to our ED for CAT scan to rule out appendicitis. No trauma. No fever. No nausea or vomiting. No diarrhea. No rash. Symptoms are moderate in intensity. Palpation reproduces symptoms symptoms improved with rest. Patient voices no other complaints or concerns at this time. Portions of this note were created with voice recognition technology. There may be grammatical, spelling, punctuation or sound alike errors Timing/Duration: week(s) (2 weeks) Severity: moderate Modifying Factors: Improves With: other (Palpation to right lower quadrant reproduces pain.) Associated Symptoms: denies symptoms Allergies/Adverse Reactions: No Known Drug Allergies Allergy (Verified 08/26/22 12:09) Home Medications: Fluoxetine HCl [Prozac] 40 mg PO DAILY 02/06/12 [History] Hctz/Triamterene 75/50 mg [Maxzide 75/50] 1 mg PO DAILY 02/06/12 [History] Omeprazole 20 MG [Prilosec 20 mg] 20 mg PO BID 03/29/15 [History] Ropinirole HCl [Requip] 1 mg PO HS 03/29/15 [History] Hydrocodone/Acetaminophen [[place] 7.5-325 Tablet] 1 each PO Q6H PRN PRN 05/29/17 [History] Metformin HCl 500 mg [Glucophage 500 MG] 1,000 mg PO BIDWM 05/29/17 [History] allopurinoL [Allopurinol] 300 mg PO DAILY 05/29/17 [History] Atorvastatin Calcium [Lipitor 40Mg] 40 mg PO DAILY 08/26/22 [History] Empagliflozin [Jardiance] 25 mg PO DAILY 08/26/22 [History] Ergocalciferol (Vitamin D2) [Vitamin D2] 1 cap PO WEEKLY 08/26/22 [History] Glyburide Micronized [Glynase] 3 mg PO BID 08/26/22 [History] Hx Tetanus, Diphtheria Vaccination/Date Given: Yes Hx Influenza Vaccination/Date Given: Yes (2010) Hx Pneumococcal Vaccination/Date Given: Yes - Review of Systems Constitutional: No Symptoms, No Fever, No Chills Eyes: No Symptoms Ears, Nose, & Throat: No Symptoms Respiratory: No Symptoms, No Cough, No Dyspnea Cardiac: No Symptoms, No Chest Pain, No Edema, No Syncope Abdominal/Gastrointestinal: No Symptoms, No Abdominal Pain, No Nausea, No Vomiting, No Diarrhea Genitourinary Symptoms: No Symptoms, No Dysuria Musculoskeletal: No Symptoms, No Back Pain, No Neck Pain Skin: No Symptoms, No Rash Neurological: No Symptoms, No Dizziness, No Focal Weakness, No Sensory Changes Psychological: No Symptoms Endocrine: No Symptoms Hematologic/Lymphatic: No Symptoms Immunological/Allergic: No Symptoms All Other Systems: Reviewed and Negative - Past Medical History Pertinent Past Medical History: Yes Neurological History: No Pertinent History ENT History: No Pertinent History Cardiac History: Hypertension Respiratory History: No Pertinent History, Sleep Apnea Endocrine Medical History: No Pertinent History Musculoskeletal History: No Pertinent History GI Medical History: No Pertinent History History: No Pertinent History Psycho-Social History: Depression Female Reproductive Disorders: No Pertinent History - Past Surgical History Past Surgical History: Yes Neuro Surgical History: No Pertinent History Cardiac: No Pertinent History Respiratory: No Pertinent History Gastrointestinal: No Pertinent History Genitourinary: No Pertinent History Musculoskeletal: Orthopedic Surgery, Other Female Surgical History: Section, Hysterectomy Other Surgical History: cervical ablation, knee scope left, cycst removed in lower back, maniscus repair and knee scope, left ankle - Social History Smoking Status: Never smoker Exposure to second hand smoke: No Drug Use: none Patient Lives Alone: No - Nursing Vital Signs Nursing Vital Signs: Initial Vital Signs Temperature 97.5 F 08/26/22 11:52 Pulse Rate 77 08/26/22 11:52 Blood Pressure 148/79 08/26/22 11:52 O2 Sat by Pulse Oximetry 95 08/26/22 11:52 Pain Scale Pain Intensity 8 - Physical Exam General Appearance: no apparent distress, alert Eye Exam: PERRL/EOMI, eyes nml inspection Ears, Nose, Throat Exam: normal ENT inspection, TMs normal, pharynx normal, moist mucous membranes Neck Exam: normal inspection, non-tender, supple, full range of motion Respiratory Exam: normal breath sounds, lungs clear, airway intact, No respiratory distress Cardiovascular Exam: regular rate/rhythm, normal heart sounds, normal peripheral pulses Gastrointestinal/Abdomen Exam: soft, normal bowel sounds, other (Right lower quadrant tenderness), No tenderness, No mass Back Exam: normal inspection, normal range of motion, No CVA tenderness, No vertebral tenderness Extremity Exam: normal inspection, normal range of motion, pelvis stable Neurologic Exam: alert, oriented x 3, cooperative, normal mood/affect, nml cerebellar function, nml station & gait, sensation nml, No motor deficits Skin Exam: normal color, warm, dry, No rash Lymphatic Exam: No adenopathy SpO2 Interpretation: normal SpO2: 97 O2 Delivery: Room Air - Course Nursing assessment & vital signs reviewed: Yes - CT Exams Abdomen/Pelvis CT Interpretation: Tele-radiologist Report (Lung nodule, appendix not visualized, fatty liver, degenerative changes of spine) Ordered Tests: Active Orders 24 hr Category Date Time Status IV Insertion STAT Care 08/26/22 11:29 Active ABDOMEN AND PELVIS W/0 CONTRAS [CT] Stat Exams 08/26/22 11:29 Completed UA W/RFX UR CULTURE Stat Lab 08/26/22 15:08 Completed Medication Summary Discontinued Medications Generic Name Dose Route Start Last Admin Trade Name Toya PRVidya Reason Stop Dose Admin Morphine Sulfate 4 mg 08/26/22 11:29 08/26/22 11:51 Morphine Sulfate 4 Mg/Ml Injection IV 08/26/22 11:30 4 mg STAT ONE Administration Morphine Sulfate Confirm 08/26/22 11:47 Morphine Sulfate 4 Mg/Ml Injection Administered 08/26/22 11:48 Dose 4 mg .ROUTE .STK-MED ONE Ondansetron HCl 4 mg 08/26/22 11:29 08/26/22 11:50 Ondansetron Hcl 4 Mg/2 Ml Vial IV 08/26/22 11:30 4 mg STAT ONE Administration Ondansetron HCl Confirm 08/26/22 11:46 Ondansetron Hcl 4 Mg/2 Ml Vial Administered 08/26/22 11:47 Dose 4 mg .ROUTE .STK-MED ONE Lab/Rad Data: Laboratory Results 08/26/22 Range/Units 15:08 Urine Color Yellow (Yellow) Urine Appearance Clear (Clear) Urine pH 6.5 (4.6-8.0) Ur Specific [place] >=1.030 A (1.005-1.030) Urine Protein Negative (Negative) Urine Glucose (UA) >=1000 A (Negative) mg/dL Urine Ketones Negative (Negative) Urine Blood Negative (Negative) Urine Nitrite Negative (Negative) Urine Bilirubin Negative (Negative) Urine Urobilinogen 0.2 (0.2) mg/dL Ur Leukocyte Esterase Negative (Negative) U Hyaline Cast (Auto) NONE SEEN (0-2) /LPF Urine Microscopic RBC 0-2 (0-5) /HPF Urine Microscopic WBC 0-2 (0-5) /HPF Ur Epithelial Cells Few (None Seen) /HPF Urine Bacteria None Seen (None Seen) /HPF Urine Culture Reflexed NO (NO) - Progress Progress: improved Progress Note: Patient is a 57-year-old female presents to our ED as a referral from her primary care doctor for a CAT scan specifically to look for appendicitis. On physical examination patient has tenderness of the right lower quadrant. Laboratory work-up was initiated at patient's primary care doctor's office. We did not repeat the labs here. However urinalysis was also done at the doctor's office. We do not have access to the results. We repeated a urinalysis here. Urinalysis reveals glucosuria. Otherwise no UTI. Patient has a history of a total hysterectomy. Patient has no uterus or ovaries. CT scan unable to visualize the appendix. I discussed the case with Dr. Jolly on-call general surgeon. Since patient's pain has been ongoing for over a week and no leukocytosis observed on her laboratory work-up performed at her primary care doctor's office, our surgeon feels patient would be appropriate for discharge. Patient has [place] medication at home. We called Dr. Gutiérrez's office. Dr. Rolle was our patient's primary care doctor's office. Patient will be seen on in 2 days at 9 AM for reevaluation. Patient agrees with this plan of care. She voices no other complaints or concerns at this time. Portions of this note were created with voice recognition technology. There may be grammatical, spelling, punctuation or sound alike errors Patient presenting complaint is acute. Complexity of problems addressed is moderate. New diagnosis of right lower quadrant pain with uncertain prognosis as the appendix is not visualized on CAT scan. No critical care time. Complexity of data reviewed and analyzed was moderate. Patient served as independent historian. CT scan ordered. Results reviewed. I also pulled up the laboratory work-up performed at her primary care doctor's office. I reviewed and analyzed those results as well. No significant findings to explain patient's right lower quadrant pain. Patient received morphine for pain control. Patient is resting comfortably. We will discharge patient home. Patient agrees to follow-up with her primary care doctor on Thursday in 2 days at 9 AM for reevaluation. Plan of care made based on shared decision making model. Vital stable. Patient voices no other complaints or concerns at this time. Patient states he is ready for discharge. Portions of this note were created with voice recognition technology. There may be grammatical, spelling, punctuation or sound alike errors 08/26/22 16:28 Counseled pt/family regarding: lab results, diagnosis, rad results - Departure Departure Disposition: Home Clinical Impression: Right lower quadrant pain, Fatty liver, Arthritis, lumbar spine, Glucosuria Condition: Stable Critical Care Time: No Referrals: ABEL GUTIÉRREZ [Primary Care Provider] - Follow up/PCP as directed Additional Instructions: Discharge/Care Plan GLENDACASSANDRA GARCIA was seen on 08/26/22 in the Emergency Room. The patient was counseled regarding Diagnosis,Lab results, Imaging studies, need for follow up and when to return to the Emergency Room. Prescriptions given: Discharge Note I have spoken with the patient and/or caregivers. I have explained the patient's condition, diagnosis and treatment plan based on the information available to me at this time. I have answered the patient's and/or caregiver's questions and addressed any concerns. The patient and/or caregivers have as good understanding of the patient's diagnosis, condition and treatment plan as can be expected at this point. The vital signs have been stable. The patient's condition is stable and appropriate for discharge from the emergency department. The patient will pursue further outpatient evaluation with the primary care physician or other designated or consulting physician as outlined in the discharge instructions. The patient and/or caregivers are agreeable to this plan of care and follow-up instructions have been explained in detail. The patient and/or caregivers have received these instruction. The patient/and or caregivers are aware that any significant change in condition or worsening of symptoms should prompt an immediate return to this or the closest emergency department or call 911.
[2022-08-26] MEDS ORDERED: MORPHINE SULFATE 4 MG INJ ONE (11:47)
--- NOTE | 2022-08-26 12:56 | XRAY ---
Indication: Right lower quadrant pain. Multiple contiguous axial images obtained through the abdomen and pelvis without contrast. Comparison: October 07, 2017 Lung bases demonstrate stable benign posterior left lower lobe noncalcified micronodule presumed granulomatous. Heart not enlarged. Stable subcarinal and left infrahilar calcified nodes. Noncontrasted stomach and bowel loops appear nonobstructed. Again appendix not visualized. Stable diffuse fatty liver and hysterectomy. No free fluid/air. Remaining liver, gallbladder, pancreas, spleen, adrenal glands, kidneys, ureters, bladder, and aorta are unremarkable for noncontrast exam. Osseous structures intact with minimal degenerative changes of the spine. Impression: 1. Again chronic findings including fatty liver, degenerative spondylosis, and old granulomatous disease. 2. Remaining CT abdomen/pelvis without contrast exam continues to be negative.
[2022-08-26 15:20] LABS: Appearance Clear (Clear); Bacteria None Seen /HPF (None Seen); Bilirubin Negative (Negative); Blood Negative (Negative); Epithelial Cells Few /HPF (None Seen); Glucose, Urine >=1000 mg/dL (Negative); Hyaline Casts NONE SEEN /LPF (0-2); Ketones Negative (Negative); Leukocyte Esterase Negative (Negative); Nitrite Negative (Negative); Ph 6.5 (4.6-8.0); Protein,Urine Dip Negative (Negative); RBC 0-2 /HPF (0-5); Specific Gravity >=1.030 (1.005-1.030); Urobilinogen 0.2 mg/dL (0.2); WBC 0-2 /HPF (0-5)
[2022-08-26 15:41] LABS: ADD URINE CULTURE? NO (NO)
[2022-08-26 16:36] VITALS: BP 115/60; PULSE 74; O2SAT 94
== END 2022-08-26 16:43 | disposition home or self-care (01) ==
LOC: ED 11:01
DX: R10.31 Right lower quadrant pain (principal); K76.0 Fatty (change of) liver, not elsewhere classified; M47.816 Spondylosis without myelopathy or radiculopathy, lumbar region; R81 Glycosuria; I10 Essential (primary) hypertension; Z79.84 Long term (current) use of oral hypoglycemic drugs; Z79.899 Other long term (current) drug therapy
CPT/HCPCS: 36000; 74176; 81001; 96374; 96375; 99284; J2270; J2405